=== PATIENT | female | born 2000 | race Caucasian/White ===

== ENCOUNTER 2024-02-21 07:18 | Outpatient (RCR) | payer OTHER, SELFPAY ==
[2024-02-13 16:15] LABS: Basophils Absolute Auto 0.1 10^3/uL (0.0-0.1); Basophils Percent Auto 0.9 % (0.2-2.0); Eosinophils Absolute Auto 0.2 10^3/uL (0.0-0.7); Eosinophils Percent Auto 2.5 % (0.9-7.0); Hematocrit 38.8 % (36.0-48.0); Hemoglobin 12.2 g/dL (12.0-16.0); Immature Granulocytes Abs Auto 0.01 10^3/uL (0.00-0.03); Immature Granulocytes Pct Auto 0.1 % (0.0-0.5); Lymphocytes Absolute Auto 2.6 10^3/uL (1.2-3.8); Lymphocytes Percent Auto 37.9 % (20.5-60.0); Mean Corpuscular HGB Conc 31.4 g/dL (29.9-35.2); Mean Corpuscular Hemoglobin 29.7 pg (26.7-34.0); Mean Corpuscular Volume 94.4 fL (81.0-99.0); Mean Platelet Volume 9.3 fL (9.5-13.5); Monocytes Absolute Auto 0.6 10^3/uL (0.3-0.8); Monocytes Percent Auto 8.6 % (1.7-12.0); Neutrophils Absolute Auto 3.4 10^3/uL (1.4-6.5); Platelet Count 449 10^3/uL (150-450); Red Blood Count 4.11 10^6/uL (4.20-5.40); Red Cell Distribution Width 13.7 % (11.0-15.0); White Blood Count 6.9 10^3/uL (4.0-11.0)
[2024-02-13 16:24] LABS: Erythrocyte Sedimentation Rate 20 mm/hr (<=20)
[2024-02-13 16:47] LABS: C Reactive Protein <0.50 mg/dL (<=0.50)
[2024-02-13 16:53] LABS: Percent Iron Saturation 10.7 %
[2024-02-21 10:36] VITALS: BP 119/78; PULSE 95; TEMP 37.1; O2SAT 98
[2024-02-21] MEDS: ACETAMINOPHEN 500 MG TABLET 1000 MG PO (10:44)
[2024-02-21] MEDS: diphenhydrAMINE HCL 25 MG, HYDROCORTISONE SODIUM SUCC/PF 100 MG in 0.9 % SODIUM CHLORID... 301.5 MG IV (10:48)
[2024-02-21] MEDS: IRON DEXTRAN COMPLEX 100 MG/2 ML VIAL 25 MG IV (11:13)
--- NOTE | 2024-02-21 11:47 | PC.NURSE ---
1025 Arrival ambulatory,see documentation. alert oriented, beverages provided as well as warm blanket.
--- NOTE | 2024-02-21 11:48 | PC.NURSE ---
1045 IV benadryl and hydrocortisone as ordered. 1115 IV test dose of Infed. instructed on s/s of reaction ie itching wheezing shortness of breath etc. educated on need to notify staff immediately, verbalized understanding.
--- NOTE | 2024-02-21 11:49 | PC.NURSE ---
1130 No s/s of reaction noted.
--- NOTE | 2024-02-21 11:50 | PC.NURSE ---
1150 Tolerating test dose without any s/s rxn.
--- NOTE | 2024-02-21 13:11 | PC.NURSE ---
tolerating infusion without any s/s of reaction, eats 100% of meal.
[2024-02-21 14:37] VITALS: BP 110/64; PULSE 84; TEMP 36.6; O2SAT 99
== END 2024-03-01 10:48 | disposition home or self-care (01) ==
LOC: INF 07:18
PROVIDERS: PCP Midwife; Visit Provider Internal Medicine Hematology & Oncology
DX: D75.839 Thrombocytosis, unspecified (principal); D50.9 Iron deficiency anemia, unspecified; K90.9 Intestinal malabsorption, unspecified; D64.9 Anemia, unspecified
CPT/HCPCS: 36415; 82728; 83540; 83550; 85025; 85652; 86140; 96365; 96366; 96374; G0463; J1200; J1720; J1750

== ENCOUNTER 2024-04-02 07:21 | Outpatient (RCR) | payer OTHER, SELFPAY ==
[2024-04-02 09:59] LABS: C Reactive Protein <0.50 mg/dL (<=0.50)
[2024-04-02 10:02] LABS: Basophils Absolute Auto 0.1 10^3/uL (0.0-0.1); Basophils Percent Auto 0.8 % (0.2-2.0); Eosinophils Absolute Auto 0.1 10^3/uL (0.0-0.7); Hemoglobin 12.6 g/dL (12.0-16.0); Lymphocytes Percent Auto 32.7 % (20.5-60.0); Mean Corpuscular HGB Conc 32.3 g/dL (29.9-35.2); Mean Corpuscular Hemoglobin 30.2 pg (26.7-34.0); Mean Corpuscular Volume 93.5 fL (81.0-99.0); Mean Platelet Volume 9.6 fL (9.5-13.5); Monocytes Absolute Auto 0.5 10^3/uL (0.3-0.8); Monocytes Percent Auto 7.5 % (1.7-12.0); Neutrophils Absolute Auto 3.4 10^3/uL (1.4-6.5); Platelet Count 351 10^3/uL (150-450); Red Blood Count 4.17 10^6/uL (4.20-5.40); Red Cell Distribution Width 14.5 % (11.0-15.0)
[2024-04-02 10:13] LABS: Erythrocyte Sedimentation Rate 11 mm/hr (<=20)
[2024-04-02 10:22] LABS: Percent Iron Saturation 14.8 %
== END 2024-04-03 23:59 | disposition home or self-care (01) ==
LOC: HEMC 07:21
PROVIDERS: Visit Provider Internal Medicine Hematology & Oncology
DX: D50.9 Iron deficiency anemia, unspecified (principal); D75.839 Thrombocytosis, unspecified; K90.9 Intestinal malabsorption, unspecified; F17.290 Nicotine dependence, other tobacco product, uncomplicated
CPT/HCPCS: 36415; 82306; 82607; 82728; 83540; 83550; 85025; 85652; 86140; G0463

== ENCOUNTER 2024-05-29 11:16 | Outpatient (OUT) | payer OTHER, SELFPAY ==
--- OUTSIDE RECORDS SUMMARY | 2024-05-29 11:23 | XMS_ITS | CCD ---
Author Organization [facility] Care Team Providers Care Memory Care Program Resident Name Role Phone ReymundojessyMj carr Unavailable Unavailable NONE, XXXX Unavailable Unavailable ReymundojessyMj carr Unavailable Unavailable NONE, XXXX Unavailable Unavailable MARKER, DAFNE Admitting Unavailable MARKER, DAFNE Attending Unavailable MARKER, DAFNE Consulting Unavailable Carlie Walton Unavailable RYANNE LARA Attending Unavailable FLORO, RYANNE Valdivia Attending Unavailable RYANNE LARA Attending Unavailable VANESA YAÑEZ Attending Unavailab le RYANNE LARA Attending Unavailable FLORRYANNE Everett Attending Unavailable VANESA YAÑEZ Attending Unavailab le VANESA YAÑEZ Attending Unavailab le Medications Current Medications Medication Drug Class(es) Dates Sig (Normalized) Sig (Original) Cetirizine (1 source) Histamine-1 Receptor Antagonist ZyrTEC Allergy Active hydrOXYzine hydrochloride 25 mg oral tablet (1 source) Antihistamine Start: 05-11-2023 take 1 tablet by mouth every eight hours as needed hydrOXYzine HCl 25 MG 1 tablet Orally q8hrs prn itching for 7 days May, Active triamcinolone acetonide 0.001 mg/mg topical ointment (2 sources) Corticosteroid Start: 05-11-2023 Triamcinolone Acetonide 0.1 % 1 application Externally TID for 7 days May, Active Start: 02-27-2021 KENALOG - 10 m g Feb, 60 mg Problems Problem Classification Problem Date Documented Da te Episodic/Chronic Other connective tissue disease (4 sources) Pain in left foot; Translations: [PAIN IN LEFT FOOT] Onset: 02-18-2019 Episodic Other infections; including parasitic (1 source) Scabies Episodic Residual codes; unclassified (1 source) Procedure and treatment not carried out due to patient leaving prior to being seen by health care provider; Translations: [PROC AND TX NOT CARRIED OUT PT LEAVE] Onset: 02-20-2019 Episodic Vital Signs Date Time Vital Sign Value Performing Clinician Facility 05-11-2023 10:35-0400 Body height 160.02 cm Carlie Walton Other [facility] Other 05-11-2023 10:35-0400 Body mass index (BMI) [Ratio] 17.85 kg/m2 Carlie Walton Other [facility] Other 05-11-2023 10:35-0400 Body temperature 98.7 [degF] Carlie Walton Other [facility] Other 05-11-2023 10:35-0400 Body weight 45.72 kg Carlie Walton Other [facility] Other 05-11-2023 10:35-0400 Diastolic blood pressure 82 mm[Hg] Carlie Walton Other [facility] Other 05-11-2023 10:35-0400 Respiratory rate 18 /min Carlie Walton Other [facility] Other 05-11-2023 10:35-0400 SaO2% (BldA) [Mass fraction] 99 % Carlie Walton Other [facility] Other 05-11-2023 10:35-0400 Systolic blood pressure 128 mm[Hg] Carlie Walton Other [facility] Other Encounters Encounter Date Encounter Type Care Provider Facility Start: 03-26-2024 End: 03-26-2024 ambulatory VANESA YAÑEZ Not Available Start: 02-29-2024 End: 02-29-2024 ambulatory VANESA A YAÑEZ Not Available Start: 02-27-2024 End: 02-27-2024 ambulatory RYANNE L FLORO Not Available Start: 02-14-2024 End: 02-14-2024 ambulatory RYANNE L FLORO Not Available Start: 02-13-2024 End: 02-13-2024 ambulatory VANESA A YAÑEZ Not Available Start: 02-06-2024 End: 02-06-2024 ambulatory RYANNE L FLORO Not Available Start: 01-25-2024 End: 01-25-2024 ambulatory RYANNE L FLORO Not Available Start: 01-18-2024 End: 01-18-2024 ambulatory RYANNE L FLORO Not Available Start: 01-17-2024 End: 01-17-2024 ambulatory RYANNE FLORO Not Available Start: 05-11-2023 End: 05-11-2023 ambulatory Carlie Walton Other [facility] Other Start: 05-11-2023 Office outpatient visit 10 minutes Carlie Walton [facility] [place] Start: 02-18-2019 End: 02-19-2019 Patient encounter procedure DAFNE SOLARES Facility:[facility] Start: 07-03-2017 End: 07-04-2017 Ambulatory Mj Bryson Facility:[id number] Payers Date Payer Category Payer Private Health Insurance [id number] 1998 Unknown [id number] .. [id number] 1998 Unknown [id number] 1998 Unknown [id number] 1998 Unknown [id number] 1998 Unknown [id number] 1998 Unknown [id number] 2.16.84 [id number] 1998 Unknown [id number] 2.16.84 [id number] 1998 Unknown [id number] 2.16.84 [id number] 1998 Unknown [id number] 2.16.84 [id number] 1998 Unknown [id number] 2.16.84 [id number] 1959 Unknown [id number] Blue [employer] Blue [employer] [id number] Social History Date Type Detail Facility Unknown if ever smoked [facility] Other Sex Assigned At Sex Assigned At Bir th [facility] Other Evaluation note 05-11-2023 Note Date & Type Note Facility 05-11-2023 Evaluation note Encounter Date Diagnosis Assessment Notes May, Scabies (ICD-10 - B86) Scabies material was printed, Scabies home care material was printed Rash consistent with scabies. Patient has already been treated for scabies. Discussed with patient previous prescriber did put refill on permethrin. May repeat in 7 days if has new lesions. Discussed pruritus will take a while to completely resolved, 1 to 2 weeks. Patient finished prednisone. Will treat with topical triamcinolone cream, as needed hydroxyzine to help with itching. Information on scabies printed and provided to patient. Work note given. note medrol dose pack sent in error, cancelled [facility] Other History general Narrative - Reported Note Date & Type Note Facility History general Narrative - Reported Type Surgical History tonsillectomy Surgical History uretra was moved as infant Surgical History PE tubes [facility] Other Summary Purpose Family History No Family History Records FoundNo Family History Records FoundNo Family History Records Found Advance Directives No Advanced Directives Records FoundNo Advanced Directives Records FoundNo Advanced Directives Records Found Additional Source Comments INFORMATION SOURCE (unrecogn ized section and content) DATE CREATED AUTHOR 02/27/2018 [facility] DATE CREATED AUTHOR AUTHOR'S ORGANIZ ATION 05/04/2019 [facility] DATE CREATED AUTHOR AUTHOR'S ORGANIZ ATION 03/28/2024 [facility] EPIC REASON FOR VISIT (unrecogniz ed section and content) SCABBIES, NEEDS SOMETHING FO R THE ITCHING FOR RECORDS PERTAINING TO PATIENTS WHO ARE OR HAVE BEEN ENROLLED IN A CHEMICAL DEPENDENCY/SUBSTANCEABUSE PROGRAM, SOME INFORMATION MAY BE OMITTED. This clinical summary was aggregated from multiple sources. Caution should be exercised in using it in the provision of clinical care. This summary normalizes information from multiple sources, and as a consequence, information in this document may materially change the coding, format and clinical context of patient data. In addition, data may be omitted in some cases. CLINICAL DECISIONS SHOULD BE BASED ON THE PRIMARY CLINICAL RECORDS. [facility] [employer] [facility]. provides no warranty or guarantee of the accuracy or completeness of information in this document.
[2024-05-29 11:47] LABS: Basophils Absolute Auto 0.1 10^3/uL (0.0-0.1); Basophils Percent Auto 0.8 % (0.2-2.0); Eosinophils Absolute Auto 0.1 10^3/uL (0.0-0.7); Eosinophils Percent Auto 1.1 % (0.9-7.0); Hematocrit 40.6 % (36.0-48.0); Hemoglobin 13.5 g/dL (12.0-16.0); Immature Granulocytes Abs Auto 0.03 10^3/uL (0.00-0.03); Immature Granulocytes Pct Auto 0.4 % (0.0-0.5); Lymphocytes Absolute Auto 2.2 10^3/uL (1.2-3.8); Lymphocytes Percent Auto 27.6 % (20.5-60.0); Mean Corpuscular HGB Conc 33.3 g/dL (29.9-35.2); Mean Corpuscular Hemoglobin 30.5 pg (26.7-34.0); Mean Corpuscular Volume 91.6 fL (81.0-99.0); Monocytes Absolute Auto 0.5 10^3/uL (0.3-0.8); Monocytes Percent Auto 5.9 % (1.7-12.0); Neutrophils Percent Auto 64.2 % (43.0-75.0); Platelet Count 419 10^3/uL (150-450); Red Blood Count 4.43 10^6/uL (4.20-5.40); Red Cell Distribution Width 14.2 % (11.0-15.0); White Blood Count 7.8 10^3/uL (4.0-11.0)
[2024-05-29 12:39] LABS: Anion Gap 12.1; BUN Creatinine Ratio 13.6; Calcium 9.9 mg/dL (8.5-10.1); Carbon Dioxide 26.8 mmol/L (21.0-32.0); Chloride 102 mmol/L (98-107); Estimated GFR (African America >60 (>=60); Estimated GFR (Non-African Ame >60 (>=60); Glucose 89 mg/dL (74-106); Potassium 3.9 mmol/L (3.5-5.1); Sodium 137 mmol/L (136-145)
[2024-05-29 12:42] LABS: Percent Iron Saturation 51.8 %
[2024-05-30 04:08] LABS: Vitamin B12 547 pg/mL (232-1245)
== END 2024-05-29 11:17 | disposition home or self-care (01) ==
LOC: LAB 11:21
PROVIDERS: Visit Provider Internal Medicine Hematology & Oncology
DX: D75.839 Thrombocytosis, unspecified (principal); D50.9 Iron deficiency anemia, unspecified; K90.9 Intestinal malabsorption, unspecified
CPT/HCPCS: 36415; 80048; 82306; 82607; 82728; 83540; 83550; 85025

== ENCOUNTER 2024-06-04 07:35 | Outpatient (RCR) | payer BC, SELFPAY | END 2024-07-04 23:59 | disposition home or self-care (01) | LOC: HEMC 07:35 | PROVIDERS: Visit Provider Internal Medicine Hematology & Oncology | DX: D75.839 Thrombocytosis, unspecified (principal); D50.9 Iron deficiency anemia, unspecified; K90.9 Intestinal malabsorption, unspecified; F17.290 Nicotine dependence, other tobacco product, uncomplicated | CPT/HCPCS: G0463 ==

== ENCOUNTER 2024-10-28 15:19 | Outpatient (OUT) | payer BC, SELFPAY ==
[2024-10-28 15:57] LABS: Basophils Percent Auto 0.4 % (0.2-2.0); Eosinophils Absolute Auto 0.1 10^3/uL (0.0-0.7); Eosinophils Percent Auto 1.7 % (0.9-7.0); Hematocrit 39.1 % (36.0-48.0); Hemoglobin 12.9 g/dL (12.0-16.0); Immature Granulocytes Abs Auto 0.01 10^3/uL (0.00-0.03); Immature Granulocytes Pct Auto 0.1 % (0.0-0.5); Lymphocytes Absolute Auto 2.7 10^3/uL (1.2-3.8); Lymphocytes Percent Auto 33.8 % (20.5-60.0); Mean Corpuscular Hemoglobin 30.3 pg (26.7-34.0); Mean Corpuscular Volume 91.8 fL (81.0-99.0); Mean Platelet Volume 9.1 fL (9.5-13.5); Monocytes Absolute Auto 0.6 10^3/uL (0.3-0.8); Monocytes Percent Auto 7.4 % (1.7-12.0); Neutrophils Absolute Auto 4.6 10^3/uL (1.4-6.5); Neutrophils Percent Auto 56.6 % (43.0-75.0); Platelet Count 317 10^3/uL (150-450); Red Blood Count 4.26 10^6/uL (4.20-5.40); Red Cell Distribution Width 13.1 % (11.0-15.0); White Blood Count 8.1 10^3/uL (4.0-11.0)
[2024-10-28 16:15] LABS: Alanine Aminotransferase 37 U/L (14-59); Albumin Globulin Ratio 0.9; Albumin Level 3.8 g/dL (3.4-5.0); Alkaline Phosphatase 90 U/L (46-116); Anion Gap 10.5; Aspartate Amino Transferase 22 U/L (15-37); BUN Creatinine Ratio 12.5; Bilirubin Total 0.3 mg/dL (0.2-1.0); Calcium 8.8 mg/dL (8.5-10.1); Carbon Dioxide 30.2 mmol/L (21.0-32.0); Chloride 102 mmol/L (98-107); Estimated GFR (African America >60 (>=60 mL/min/1.73m^2); Estimated GFR (Non-African Ame >60 (>=60 mL/min/1.73m^2); Globulin 4.1 g/dL; Glucose 85 mg/dL (74-106); Potassium 3.7 mmol/L (3.5-5.1); Sodium 139 mmol/L (136-145); Total Protein 7.9 g/dL (6.4-8.2)
[2024-10-28 16:26] LABS: Percent Iron Saturation 15.4 %
[2024-10-30 04:07] LABS: Vitamin B12 876 pg/mL (232-1245)
== END 2024-10-28 15:20 | disposition home or self-care (01) ==
LOC: LAB 15:20
PROVIDERS: Visit Provider Internal Medicine Hematology & Oncology
DX: D75.839 Thrombocytosis, unspecified (principal); D50.9 Iron deficiency anemia, unspecified; K90.9 Intestinal malabsorption, unspecified
CPT/HCPCS: 36415; 80053; 82306; 82607; 82728; 83540; 83550; 85025

== ENCOUNTER 2024-10-29 07:43 | Outpatient (RCR) | payer MEDICAID, SELFPAY | END 2024-10-30 08:33 | disposition home or self-care (01) | LOC: HEMC 07:43 | PROVIDERS: Visit Provider Internal Medicine Hematology & Oncology | DX: D50.9 Iron deficiency anemia, unspecified (principal); D75.839 Thrombocytosis, unspecified; K90.9 Intestinal malabsorption, unspecified; F17.290 Nicotine dependence, other tobacco product, uncomplicated | CPT/HCPCS: G0463 ==